=== PATIENT | female | born 1940 | race Caucasian/White ===

== ENCOUNTER 2018-01-19 14:02 | Emergency (ER) | payer OTHER, MEDICAID ==
[~2018-01-19] VITALS: Ht 147.3 cm; Wt 66.9 kg
[~2018-01-19 14:02] MED LIST: IMO2 PO; [UNRECOGNIZED DRUG - CODE] PO
[2018-01-19 14:12] VITALS: BP 125/46
--- NOTE | 2018-01-19 14:26 | NUR ---
PT BIB WHEELCHAIR TO BED 1
--- NOTE | 2018-01-19 14:31 | NUR ---
PATIENT PRESENTS TO ED WITH REFERED BY DR WU CAZARES WITH C/O SOB, SORE THROAT WITH LUMP, PRODUCTIVE COUGH, BODY ACHE X 1 WK HX; THYROID RX; METHIMAZOLE, AZITHROMYCIN, BENZONATE, ASPIRIN, MYRBETRIQ . DENIES N/V/D; SKIN IS PINK/WARM/DRY; AAOX4 WITH EVEN AND STEADY GAIT; LUNGS CLEAR BL; HR EVEN AND REGULAR; PT DENIES ANY CP. PATIENT STATES PAIN OF 10/10 AT THIS TIME/GENERALIZED PAIN; PATIENT POSITIONED FOR COMFORT; HOB ELEVATED; BEDRAILS UP X2; BED DOWN. ER MD MADE AWARE OF PT STATUS.
--- NOTE | 2018-01-19 14:40 | NUR ---
TALKED TO DR. AGUILA DAUGHTER WANTS CT INSTEAD OF XRAY, PT SITTING IN THE CHAIR AT THIS TIME, PER DAUGHTER PREFER TO SIT IN CHAIR AT THIS TIME AND NOT IN BED,DR. AGUILA AT BEDSIDE
--- NOTE | 2018-01-19 14:50 | NUR ---
PT WENT FOR CT VIA WHEELCHAIR
--- NOTE | 2018-01-19 15:05 | NUR ---
LAB AT BEDSIDE
[2018-01-19 15:13] LABS: BASOPHILS % (AUTO) 0.6 % (0.0-2.0); EOSINOPHILS # (AUTO) 0.1 K/uL (0-0.4); EOSINOPHILS % (AUTO) 0.9 % (0.0-4.0); HEMATOCRIT 37.5 % (36-48); HEMOGLOBIN 11.9 g/dL (12.0-16.0); LYMPHOCYTES # (AUTO) 0.7 K/uL (2.5-16.5); LYMPHOCYTES % (AUTO) 9.3 % (20.5-51.1); MEAN CORPUSCULAR HEMOGLOBIN 25 pg (27-31); MEAN CORPUSCULAR HGB CONC 32 g/dL (33-37); MEAN CORPUSCULAR VOLUME 78.5 fL (80-94); MONOCYTES # (AUTO) 0.5 K/uL (0.8-1.0); MONOCYTES % (AUTO) 6.9 % (1.7-9.3); NEUTROPHILS # (AUTO) 6.4 K/uL (1.8-7.7); NEUTROPHILS % (AUTO) 82.3 % (42.2-75.2); PLATELET COUNT (AUTO) 225 K/uL (140-450); RED BLOOD CELL COUNT(AUTO) 4.78 MIL/uL (4.20-5.40); RED CELL DISTRIBUTION WIDTH 13.9 % (11.6-13.7); WHITE BLOOD COUNT (AUTO) 7.8 K/uL (4.8-10.8)
--- NOTE | 2018-01-19 15:16 | NUR ---
LATEST RESP RATE AT THIS TIME AFTER O2 APPLICATION 24, PT AAO, NO DISTRESS NOTED AT THIS TIME.
--- NOTE | 2018-01-19 15:16 | NUR ---
INFORMED DR. AGUILA RESP RATE 32, ASK IF OK TO PUT O2 AT 2L, PER OK TO GIVE O2
[2018-01-19 15:21] LABS: ANION GAP 11.5 (8-16); CARBON DIOXIDE 29.8 mmol/L (21-32); CHLORIDE 99 mmol/L (98-107); CREATININE 0.7 mg/dL (0.6-1.3); GLUCOSE 117 mg/dL (74-106); POTASSIUM 4.3 mmol/L (3.5-5.1); SODIUM SERUM 136 mmol/L (136-145); UREA NITROGEN, BLOOD 10 mg/dL (7-18)
--- NOTE | 2018-01-19 15:31 | NUR ---
dr. padilla at bedside at this time
[2018-01-19 15:36] LABS: ALBUMIN 3.3 g/dL (3.4-5.0); ASPARTATE AMINOTRANSFERASE 15 U/L (15-37); FREE T4 (FREE THYROXINE) 1.07 ng/dL (0.76-1.46); THYROID STIMULATING HORMONE 0.38 uIU/mL (0.34-3.74); TOTAL BILIRUBIN 0.2 mg/dL (0.0-1.0)
--- NOTE | 2018-01-19 15:40 | NUR ---
DR. AGUILA AT BEDSIDE AGAIN
--- NOTE | 2018-01-19 15:41 | NUR ---
COPY OF LABS AND CD GIVEN TO PT DAUGHTER.
[2018-01-19 15:52] VITALS: BP 128/57
--- NOTE | 2018-01-19 15:53 | NUR ---
Patient discharged with v/s stable. Written and verbal after care instructions given and explained. Patient alert, oriented and verbalized understanding of instructions. Wheel Chair Assisted with to car. All questions addressed prior to discharge. ID band removed. Patient advised to follow up with PMD. Rx of PREDNISONE given. Patient educated on indication of medication including possible reaction and side effects. Opportunity to ask questions provided and answered. PER DAUGHTER SHE WILL BRING HER TO [facility]ICE NOW
== END 2018-01-19 15:53 | disposition home or self-care (01) ==
LOC: MED 14:02
DX: E07.9 Disorder of thyroid, unspecified (principal); R05 Cough
CPT/HCPCS: 36415; 70490; 71045; 80053; 84439; 84443; 85025; 99285